=== PATIENT | female | born 1985 | race Caucasian/White ===

== ENCOUNTER 2016-08-31 10:01 | Emergency (ER) | payer SELFPAY ==
[~2016-08-31] VITALS: Wt 71.0 kg
[2016-09-01] MEDS ORDERED: IBUP-1542 PO (01:51)
== END 2016-08-31 13:47 | disposition left against medical advice (07) ==
LOC: FTE 10:01
DX: Z53.21 Procedure and treatment not carried out due to patient leaving prior to being seen by health care provider (principal)

== ENCOUNTER 2016-08-31 21:18 | Emergency (ER) | payer OTHER ==
[~2016-08-31] VITALS: Ht 170.2 cm; Wt 73.0 kg
[2016-08-31 21:48] VITALS: Ht 170.2 cm; Wt 73.0 kg
--- NOTE | 2016-08-31 22:52 | ERA ---
ER Documentation Chief Complaint Date/Time DATE: 08/31/16 TIME: 22:51 Chief Complaint PT VAG BLEED ( SPOTTING) X 2 WEEK, DENIES WEAKNESSS HPI The patient is a 30-year-old female, presenting to the ER because of vaginal spotting for the last 2 weeks. She denies similar symptoms previously, fever, chills, dizziness, weakness, neck pain, chest pain, abdominal pain, vomiting, dysuria, diarrhea, constipation. She does not smoke nor drink, denies any unusual stress Past medical history:None Past surgical history: Ventral herniorrhaphy ROS All systems reviewed and are negative except as per history of present illness. Medications Home Meds Active Scripts Ibuprofen* (Motrin*) 600 Mg Tab, 600 MG PO Q6H Y for PAIN AND OR ELEVATED TEMP, #30 TAB Prov:QUITA CÁRDENAS MD 09/01/16 Allergies Allergies: Coded Allergies: latex (Unverified Allergy, Severe, RASH, 03/29/15) PER PT ALLERGIC TO LATEX NOT LASIX PMhx/Soc History of Surgery: Yes (VENTRAL HERNIA) Anesthesia Reaction: No Hx Neurological Disorder: No Hx Respiratory Disorders: No Hx Cardiac Disorders: No Hx Psychiatric Problems: No Hx Miscellaneous Medical Probl: No Hx Alcohol Use: No Hx Substance Use: No Hx Tobacco Use: No Physical Exam Vitals Vital Signs Date Time Temp Pulse Resp B/P Pulse Ox O2 Delivery O2 Flow Rate FiO2 08/31/16 21:48 98.6 63 17 121/70 100 Physical Exam Const: No acute distress. Head: Atraumatic. Eyes: Normal Conjunctiva. ENT: Normal External Ears, Nose and Mouth. Neck: Full range of motion. No meningismus. Resp: Clear to auscultation bilaterally. Cardio: Regular rate and rhythm, no murmurs. Abd: Soft, non distended, normal bowel sounds, non tender. Skin: No petechiae or rashes. Back: No midline or flank tenderness. Ext: No cyanosis, or edema. Neur: Awake and alert. No focal deficit Psych: Normal Mood and Affect. Result Diagram: 08/31/16 7610 08/31/16 2330 Results 24 hrs Laboratory Tests Test 08/31/16 23:30 09/01/16 00:45 White Blood Count 9.610^3/ul Red Blood Count 4.9610^6/ul Hemoglobin 13.0g/dl Hematocrit 40.4% Mean Corpuscular Volume 81.5fl Mean Corpuscular Hemoglobin 26.2pg Mean Corpuscular Hemoglobin Concent 32.2g/dl Red Cell Distribution Width 13.2% Platelet Count 68876^3/UL Mean Platelet Volume 11.2fl Neutrophils % 51.7% Lymphocytes % 39.6% Monocytes % 6.5% Eosinophils % 1.8% Basophils % 0.2% Nucleated Red Blood Cells % 0.0/100WBC Neutrophils # 4.910^3/ul Lymphocytes # 3.810^3/ul Monocytes # 0.610^3/ul Eosinophils # 0.210^3/ul Basophils # 0.010^3/ul Nucleated Red Blood Cells # 0.010^3/ul Sodium Level 139mmol/L Potassium Level 3.7mmol/L Chloride Level 106mmol/L Carbon Dioxide Level 25mmol/L Anion Gap 12 Blood Urea Nitrogen 17mg/dl Creatinine 0.72mg/dl Glucose Level 106mg/dl Calcium Level 9.3mg/dl Bedside Urine pH (LAB) 5.5 Bedside Urine Protein (LAB) Negative Bedside Urine Glucose (UA) Negative Bedside Urine Ketones (LAB) Negative Bedside Urine Blood 1+ Bedside Urine Nitrite (LAB) Negative Bedside Urine Leukocyte Esterase (L Negative Procedures/[place] [address] Radiology Main Line: [phone] DIAGNOSTIC IMAGING REPORT Patient: RODRICK CORREA : 1985 Age: 30 Sex: F [id number] DOS: 08/31/16 [facility]8 Ordering MD: QUITA CÁRDENAS MD Location: FTE Room/Bed: PROCEDURE: US Non-OB Pelvis. CLINICAL INDICATION: Vaginal bleeding. TECHNIQUE: Multiple sonographic images of the pelvis were obtained utilizing a transabdominal and endovaginal technique. The images were reviewed on a PACS workstation. COMPARISON: None. FINDINGS: The uterus is visualized and measures 6.0 x 3.3 x 4.1 cm. The endometrial echo complex is normal and measures 5 mm. The right ovary measures 3.0 x 2.1 x 2.6 cm. The left ovary measures 3.7 x 1.7 x 2.7 cm. Blood flow is demonstrated to both ovaries. No adnexal masses are noted. There is no evidence of free fluid. IMPRESSION: 1. Unremarkable pelvic ultrasound. RPTAT: HTAR .Jonathan Gonzalez MD, MD Date Time Electronically viewed and signed by .Jonathan Gonzalez MD, MD on 09/01/2016 00:21 .R/ CC: QUITA CÁRDENAS MD MEDICAL MAKING DECISION: The patient is a 30-year-old female, presenting with acute dysfunctional uterine bleeding. The differential diagnoses considered include but are not limited to PID, ovarian cyst, endometriosis, fibroids, appendicitis. Departure Diagnosis: Primary Impression: Dysfunctional uterine bleeding Condition: Good Comments I discussed the findings with the patient. 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 QUITA CÁRDENAS MD Aug 31, 2016 22:52
[2016-08-31 23:34] LABS: ADD SCAN DIFF NO
[2016-08-31 23:36] LABS: BASOPHILS % 0.2 % (0.0-2.0); EOSINOPHILS # 0.2 10^3/ul (0.0-0.5); EOSINOPHILS % 1.8 % (0.0-7.0); HEMATOCRIT 40.4 % (37.0-47.0); LYMPHOCYTES # 3.8 10^3/ul (0.8-2.9); LYMPHOCYTES % 39.6 % (15.0-51.0); MEAN CORPUSCULAR HEMOGLOBIN 26.2 pg (29.0-33.0); MEAN CORPUSCULAR HGB CONC 32.2 g/dl (32.0-37.0); MEAN CORPUSCULAR VOLUME 81.5 fl (82.0-101.0); MEAN PLATELET VOLUME 11.2 fl (7.4-10.4); MONOCYTE # 0.6 10^3/ul (0.3-0.9); MONOCYTES % 6.5 % (0.0-11.0); NEUTROPHIL # 4.9 10^3/ul (1.6-7.5); NEUTROPHILS % 51.7 % (39.0-77.0); PLATELET COUNT 226 10^3/UL (140-415); RED BLOOD COUNT 4.96 10^6/ul (4.20-5.40); RED CELL DISTRIBUTION WIDTH 13.2 % (11.5-14.5); WHITE BLOOD COUNT 9.6 10^3/ul (4.8-10.8)
[2016-08-31 23:59] LABS: CALCIUM 9.3 mg/dl (8.4-10.2); CREATININE 0.72 mg/dl (0.44-1.00); POTASSIUM 3.7 mmol/L (3.5-5.1)
--- NOTE | 2016-09-01 00:21 | RADRPT ---
PROCEDURE: US Non-OB Pelvis. CLINICAL INDICATION: Vaginal bleeding. TECHNIQUE: Multiple sonographic images of the pelvis were obtained utilizing a transabdominal and endovaginal technique. The images were reviewed on a PACS workstation. COMPARISON: None. FINDINGS: The uterus is visualized and measures 6.0 x 3.3 x 4.1 cm. The endometrial echo complex is normal and measures 5 mm. The right ovary measures 3.0 x 2.1 x 2.6 cm. The left ovary measures 3.7 x 1.7 x 2.7 cm. Blood flow is demonstrated to both ovaries. No adnexal masses are noted. There is no evidence of free fluid. IMPRESSION: 1. Unremarkable pelvic ultrasound. RPTAT: HTAR .Jonathan Gonzalez MD, Date Time Electronically viewed and signed by .Jonathan Gonzalez MD, on 09/01/2016 00:21 .R/
[2016-09-01 00:45] LABS: URINE BLOOD (Dip) POC 1+ (NEGATIVE)
[2016-09-01] MEDS ORDERED: IBUP-1542 PO (01:51)
== END 2016-09-01 01:57 | disposition home or self-care (01) ==
LOC: FTE 21:18
DX: N93.8 Other specified abnormal uterine and vaginal bleeding (principal)
CPT/HCPCS: 76830; 76856; 80048; 81003; 85025; Z7502

== ENCOUNTER 2017-03-20 14:50 | Outpatient (CLI) | payer OTHER ==
[~2017-03-20] VITALS: Ht 170.2 cm; Wt 79.9 kg
[~2017-03-20 14:50] MED LIST: IBUP-1542 PO
[2017-03-20] MEDS ORDERED: PREN1TAB13 PO (15:06)
[2017-03-20 15:07] VITALS: BP 97/53; PULSE 78; RESP 18; Ht 170.2 cm; Wt 79.9 kg
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
[2017-03-20 16:36] LABS: BASOPHILS % 0.2 % (0.0-2.0); EOSINOPHILS # 0.1 10^3/ul (0.0-0.5); EOSINOPHILS % 0.6 % (0.0-7.0); HEMATOCRIT 29.4 % (37.0-47.0); HEMOGLOBIN 10.1 g/dl (12.0-16.0); LYMPHOCYTES % 21.3 % (15.0-51.0); MEAN CORPUSCULAR HEMOGLOBIN 27.6 pg (29.0-33.0); MEAN CORPUSCULAR HGB CONC 34.4 g/dl (32.0-37.0); MEAN CORPUSCULAR VOLUME 80.3 fl (82.0-101.0); MEAN PLATELET VOLUME 11.6 fl (7.4-10.4); MONOCYTE # 0.8 10^3/ul (0.3-0.9); MONOCYTES % 8.1 % (0.0-11.0); NEUTROPHIL # 6.6 10^3/ul (1.6-7.5); NEUTROPHILS % 69.4 % (39.0-77.0); PLATELET COUNT 180 10^3/UL (140-415); RED BLOOD COUNT 3.66 10^6/ul (4.20-5.40); RED CELL DISTRIBUTION WIDTH 13.3 % (11.5-14.5); WHITE BLOOD COUNT 9.5 10^3/ul (4.8-10.8)
[2017-03-20 16:48] LABS: PT RATIO 1.1
[2017-03-20 16:49] LABS: PARTIAL THROMBOPLASTIN TIME 27.8 Sec (25.0-35.0)
[2017-03-20 17:14] LABS: INR 1.04; PROTIME 13.6 Sec (12.2-14.2)
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
== END 2017-03-20 18:20 | disposition home or self-care (01) ==
LOC: OBT 14:50 → L-D 14:50 → OBT 18:20
PROVIDERS: ATTEND Obstetrics & Gynecology
DX: O9A.213 Injury, poisoning and certain other consequences of external causes complicating pregnancy, third trimester (principal); Z3A.29 29 weeks gestation of pregnancy; V49.9XXA Car occupant (driver) (passenger) injured in unspecified traffic accident, initial encounter; Y92.410 Unspecified street and highway as the place of occurrence of the external cause
CPT/HCPCS: 76818; 85025; 85460; 85610; 85730; Z7500; G0463

== ENCOUNTER 2017-05-23 10:37 | Inpatient (IN) | END 2017-05-26 20:00 | disposition home or self-care (01) | DRG 775 ==